=== PATIENT | female | born 1950 | race Caucasian/White ===

== ENCOUNTER 2022-01-18 05:25 | Inpatient (IN) | payer MEDICARE ==
[~2022-01-18] VITALS: Ht 167.6 cm; Wt 52.3 kg
[2022-01-18 05:22] LABS: COVID AG,FIA SOURCE NASAL SWAB
[~2022-01-18 05:25] MED LIST: LEVE250T4 PO; OLAN2.5T29 PO; PARO10TA89 PO; RINGERS SOLUTION,LACTATED 1,000 ML IV ONE; TAMS-13 PO
[2022-01-18] MEDS ORDERED: RINGERS SOLUTION,LACTATED 1,000 ML IV ONE ×2 (05:30→09:01)
[2022-01-18] MEDS ORDERED: BUPIVACAINE HCL/PF 0.25% 30 ML VIAL ONE (05:58)
[2022-01-18] MEDS ORDERED: SODIUM CHLORIDE 0.9% 1,000 ML ONE (05:58)
[2022-01-18] MEDS ORDERED: VANCOMYCIN HCL 1 GM/VIAL ONE (05:58)
[2022-01-18] MEDS ORDERED: BUPIVACAINE LIPOSOME/PF 1.3%-13.3MG/ML SUSPENSION 20 ML VIAL INJ ONE (06:00)
[2022-01-18] MEDS ORDERED: MICROFIBRILLAR COLLAGEN 1 GM PACKAGE TP ONE (06:15)
[2022-01-18 06:26] LABS: BASOPHILS % (AUTO) 0.2 % (0.0-2.0); HEMATOCRIT 41.6 % (36-46); HEMOGLOBIN 13.6 g/dL (12.0-16.0); LYMPHOCYTES # (AUTO) 1.4 K/uL (1.0-4.8); LYMPHOCYTES % (AUTO) 17.1 % (22.0-44.0); MEAN CORPUSCULAR HEMOGLOBIN 29.9 pg (26.0-34.0); MEAN CORPUSCULAR HGB CONC 32.7 G/dL (31.0-37.0); MEAN CORPUSCULAR VOLUME 91 fL (80-100); MONOCYTES # (AUTO) 0.5 K/uL (0.1-1.0); MONOCYTES % (AUTO) 6.4 % (2.0-9.0); NEUTROPHILS # (AUTO) 6.1 K/uL (1.8-7.7); NEUTROPHILS % (AUTO) 73.3 % (40.0-70.0); PLATELET COUNT (AUTO) 249 K/uL (150-450); RED BLOOD CELL COUNT(AUTO) 4.56 MIL/uL (4.00-5.20); RED CELL DISTRIBUTION WIDTH 14.6 % (11.5-14.5)
[2022-01-18 06:34] LABS: ANION GAP 3 mmol/L (8-16); CALCIUM, TOTAL 8.7 mg/dL (8.8-10.5); CARBON DIOXIDE 35 mmol/L (22-29); CHLORIDE 100 mmol/L (98-107); CREATININE 0.63 mg/dL (0.60-1.30); GLUCOSE,RANDOM 103 mg/dL (70-110); POTASSIUM 4.7 mmol/L (3.5-5.1); SODIUM SERUM 138 mmol/L (136-145); UREA NITROGEN, BLOOD 17 mg/dL (7-18)
[2022-01-18 06:39] LABS: INR 0.9 (0.9-1.1); PROTHROMBIN TIME 9.7 SEC (9.4-11.6)
[2022-01-18 06:41] LABS: GLOMERULAR FILTR. RATE CALC > 60 mL/min (>60)
[2022-01-18] MEDS ORDERED: SUGAMMADEX SODIUM 200 MG/2 ML VIAL IVP ONE ×2 (07:39→10:30)
[2022-01-18] MEDS ORDERED: ACETAMINOPHEN 1000 MG/ISO-OSM 100 ML IV ONE (07:39)
[2022-01-18] MEDS ORDERED: FentaNYL CITRATE PF 100 MCG/2 ML VIAL IVP PRN (08:00)
[2022-01-18] MEDS: OXYGEN THERAPY IH SCH ×2 (08:00→21:04)
[2022-01-18] MEDS ORDERED: MUPIROCIN CALCIUM 2% 22 GM OINTMENT ONE (08:42)
[2022-01-18] MEDS ORDERED: NALOXONE HCL 0.4 MG/ML VIAL ONE (10:29)
[2022-01-18] MEDS ORDERED: FentaNYL CITRATE PF 100 MCG/2 ML VIAL ONE (10:49)
[2022-01-18 11:13] LABS: ABG A-A DIFF O2 86.1 mmHg (10-20.0); ABG BASE EXCESS -0.6 mmol/L (-2.0-3.0); ABG CARBOXYHEMOGLOBIN 0.4 % (0.0-1.5); ABG HCO3 23.7 mmol/L (22.0-26.0); ABG METHEMOGLOBIN 0.2 % (0.0-1.5); ABG OXYGEN CONTENT 19.6 mL/dL (15.0-23.0); ABG OXYGEN SATURATION 94.6 % (95.0-98.0); ABG PCO2 44 mmHg (35-45); ABG PH 7.366 (7.35-7.450); ABG TOTAL HEMOGLOBIN 14.8 G/dL (12.0-18.0); O2 DEVICE,BLOOD GAS CANNULA (ROOM AIR); PO2, ARTERIAL BG 76.1 mmHg (75.0-83.0); SITE, BLOOD GAS RT RADIAL; SOURCE, BLOOD GAS ARTERIAL
[2022-01-18] MEDS ORDERED: FentaNYL CITRATE PF 100 MCG/2 ML VIAL IVP ONE (12:00)
[2022-01-18] MEDS ORDERED: MIDAZOLAM HCL 2 MG/2 ML VIAL IVP ONE (12:00)
[2022-01-18] MEDS ORDERED: OLANZapine 2.5 MG TABLET PO SCH (13:45)
[2022-01-18] MEDS ORDERED: ACETAMINOPHEN 325 MG TABLET PO PRN (15:15)
[2022-01-18] MEDS ORDERED: ZOLPIDEM TARTRATE 5 MG TABLET PO PRN (15:15)
[2022-01-18] MEDS ORDERED: BISACODYL 10 MG RECTAL RECTAL SUPPOSITORY PR PRN (15:15)
[2022-01-18] MEDS ORDERED: ONDANSETRON HCL 4 MG/2 ML VIAL IVP PRN (15:15)
[2022-01-18] MEDS ORDERED: SODIUM CHLORIDE 0.9% 1,000 ML IV ONE (15:15)
[2022-01-18] MEDS ORDERED: MAGNESIUM HYDROXIDE SUSPENSION 30 ML UDCUP PO PRN (15:15)
[2022-01-18] MEDS ORDERED: INFLUENZA VIRUS VACCINE QVS 2022-23 (6MO+)/PF 60 MCG/0.5 ML SYRINGE IM. ONE (15:45)
[2022-01-18 16:00] VITALS: BP 153/68
[2022-01-18] MEDS ORDERED: HEPARIN SODIUM,PORCINE 5,000 UNITS/ML VIAL SQ SCH (16:00)
[2022-01-18 16:18] VITALS: BP 118/65
[2022-01-18 18:00] VITALS: BP 138/64
[2022-01-18 20:00] VITALS: BP 157/93
[2022-01-18] MEDS ORDERED: DOCUSATE SODIUM 100 MG CAPSULE PO SCH (21:00)
[2022-01-18] MEDS ORDERED: LevETIRAcetam 250 MG TABLET PO SCH (21:00)
[2022-01-18] MEDS: LevETIRAcetam 250 MG in DEXTROSE 5%-WATER 100 ML IV SCH (21:44)
[2022-01-19] VITALS: BP 137/78
[2022-01-19] MEDS ORDERED: MORPHINE SULFATE 2 MG/ML SYRINGE IVP PRN (00:15)
[2022-01-19] MEDS ORDERED: FentaNYL CITRATE PF 100 MCG/2 ML VIAL IVP PRN ×4 (03:30→08:30)
[2022-01-19 04:00] VITALS: BP 157/79
[2022-01-19] MEDS: ONDANSETRON HCL 4 MG/2 ML VIAL IVP PRN ×2 (04:35→13:07)
[2022-01-19] MEDS ORDERED: ONDANSETRON HCL 4 MG/2 ML VIAL IVP PRN (07:15)
[2022-01-19 08:00] VITALS: BP_SYST 94; BP_DIAS 64; BP_DIAS 69
[2022-01-19] MEDS: OXYGEN THERAPY IH SCH ×2 (08:25→20:27)
[2022-01-19] MEDS: FentaNYL CIT 1000MCG/0.9% NACL 100 ML IV PRN ×2 (08:53→16:11)
[2022-01-19] MEDS ORDERED: PARoxetine HCL 10 MG TABLET PO SCH (09:00)
[2022-01-19] MEDS ORDERED: PANTOPRAZOLE SODIUM 40 MG DR TABLET PO SCH (09:00)
[2022-01-19] MEDS ORDERED: TAMSULOSIN HCL 0.4 MG CAPSULE PO SCH (09:00)
[2022-01-19] MEDS: LevETIRAcetam 250 MG in DEXTROSE 5%-WATER 100 ML IV SCH ×2 (09:30→21:54)
[2022-01-19 12:00] VITALS: BP_SYST 110; BP_DIAS 65; BP_DIAS 68
[2022-01-19] MEDS ORDERED: ACETAMINOPHEN 325 MG TABLET PO PRN (13:00)
[2022-01-19] MEDS ORDERED: ACETAMINOPHEN 650 MG RECTAL SUPPOSITORY PR PRN (13:15)
[2022-01-19 20:00] VITALS: BP 107/55
[2022-01-19] MEDS ORDERED: ACETAMINOPHEN 650 MG/ISO-OSM 65 ML IV PRN (22:45)
[2022-01-20] MEDS: ONDANSETRON HCL 4 MG/2 ML VIAL IVP PRN (02:19)
[2022-01-20] MEDS: FentaNYL CIT 1000MCG/0.9% NACL 100 ML IV PRN ×2 (02:20→09:15)
[2022-01-20] MEDS ORDERED: LORazepam 2 MG/ML VIAL IVP PRN (07:15)
[2022-01-20 08:26] VITALS: BP 160/66
[2022-01-20] MEDS ORDERED: OLANZapine 2.5 MG TABLET PO SCH (09:00)
[2022-01-20] MEDS: OXYGEN THERAPY IH SCH (09:16)
[2022-01-20] MEDS: LevETIRAcetam 250 MG in DEXTROSE 5%-WATER 100 ML IV SCH (09:30)
[2022-01-22] MEDS ORDERED: SCOPOLAMINE HYDROBROMIDE 1 MG/72 HOUR PATCH TD SCH (09:00)
== END 2022-01-20 09:55 | DRG 500 ==
LOC: 6N 05:25 → 5N 10:23 → ICU 11:08 → 5N 01-19 17:30
PROVIDERS: ADMIT Orthopaedic Surgery; ATTEND Orthopaedic Surgery
PROC: 0L860ZZ Division of Left Lower Arm and Wrist Tendon, Open Approach (ICD-10-PCS; principal; 2022-01-19)
PROC: 0LN60ZZ Release Left Lower Arm and Wrist Tendon, Open Approach (ICD-10-PCS; 2022-01-19)
PROC: 0RG Upper Joints, Fusion (ICD-10-PCS; 2022-01-19)
PROC: 01N50ZZ Release Median Nerve, Open Approach (ICD-10-PCS; 2022-01-19)
DX: M24.542 Contracture, left hand (principal); E43 Unspecified severe protein-calorie malnutrition; I60.9 Nontraumatic subarachnoid hemorrhage, unspecified; G93.6 Cerebral edema; G82.50 Quadriplegia, unspecified; G93.5 Compression of brain; I61.5 Nontraumatic intracerebral hemorrhage, intraventricular; J96.11 Chronic respiratory failure with hypoxia; G93.40 Encephalopathy, unspecified; Z68.1 Body mass index [BMI] 19.9 or less, adult; G40.909 Epilepsy, unspecified, not intractable, without status epilepticus; F32.A Depression, unspecified; J38.01 Paralysis of vocal cords and larynx, unilateral; Z66 Do not resuscitate; Z20.822 Contact with and (suspected) exposure to COVID-19; Z51.5 Encounter for palliative care; Z86.73 Personal history of transient ischemic attack (TIA), and cerebral infarction without residual deficits; Z90.49 Acquired absence of other specified parts of digestive tract; Z90.710 Acquired absence of both cervix and uterus; Z98.1 Arthrodesis status; Z79.899 Other long term (current) drug therapy; R00.0 Tachycardia, unspecified
CPT/HCPCS: 36600; 70450; 80048; 82805; 85025; 85610; 85730; 87081; 93005; C9290; G0378; J0131; J0712; J2250; J2310; J2405; J3010; J3370; J3490; J7030; J7060; J7120; Q9967